=== PATIENT | male | born 1970 | race Hispanic/Latino ===

== ENCOUNTER 2021-11-28 02:32 | Emergency (ER) | payer SELFPAY ==
[2021-11-28 03:42] VITALS: BP 145/94
[2021-11-28] MEDS ORDERED: SULFAMETHOXAZOLE/TRIMETHOPRIM 800/160MG DS TAB PO ONE (04:23)
[2021-11-28] MEDS ORDERED: CLINDAMYCIN 300 MG CAP PO ONE (04:23)
[2021-11-28] MEDS ORDERED: IBUPROFEN 600 MG TAB PO ONE (04:23)
--- NOTE | 2021-11-28 04:28 | Emergency Department Report ---
ED General Adult HPI - General Chief complaint: Skin/Abscess/Foreign Body Stated complaint: INFECTION ON LEFT SIDE OF FACE Time Seen by Provider: 11/28/21 04:12 Source: patient Mode of arrival: Ambulatory Limitations: No Limitations - History of Present Illness Initial comments: Patient is a 51-year-old male with no past medical history presented to the ED with complaint of acute onset persistent painful swollen erythematous maculopapular rash on left cheek with purulent discharge for the last 1 week. Patient states that the pain and the swelling worsened in the last 3 days. Patient denies dizziness, syncope, fever, chills, traumatic injury, chest pain or shortness of breath, sore throat, headache or neck pain, nausea and vomiting. MD Complaint: Left facial erythematous maculopapular rash -: Sudden, week(s) (1) Location: face (left cheek) Severity scale (0 -10): 4 Quality: aching, sharp Consistency: constant Improves with: none Worsens with: none Associated Symptoms: denies other symptoms, rash (Mildly erythematous maculopapular painful rash on left cheek with purulent discharge). denies: confusion, chest pain, diaphoresis, fever/chills, loss of appetite, malaise, nausea/vomiting, shortness of breath, syncope, weakness - Related Data Previous Rx's Medication Instructions Recorded Last Taken Type Clindamycin [Clindamycin CAP] 450 mg PO TID #30 capsule 07/18/13 Unknown Rx HYDROcodone/APAP 5-325 [[place] 1 each PO Q6H PRN #30 tablet 07/18/13 Unknown Rx 5-325 mg TAB] Clindamycin [Clindamycin CAP] 300 mg PO Q8HR #60 capsule 11/28/21 Unknown Rx Ibuprofen [Motrin] 800 mg PO Q8HR PRN #30 tablet 11/28/21 Unknown Rx Sulfamethoxazole/Trimethoprim 1 each PO Q12H #20 tab 11/28/21 Unknown Rx [Bactrim DS TAB] Allergies Allergy/AdvReac Type Severity Reaction Status Date / Time iodine Allergy Swelling Verified 07/13/13 05:10 ED Review of Systems ROS: Stated complaint: INFECTION ON LEFT SIDE OF FACE Other details as noted in HPI Constitutional: denies: chills, fever Eyes: denies: eye pain, eye discharge, vision change ENT: denies: ear pain, throat pain Respiratory: denies: cough, shortness of breath, wheezing Cardiovascular: denies: chest pain, palpitations Endocrine: no symptoms reported Gastrointestinal: denies: abdominal pain, nausea, diarrhea Genitourinary: denies: urgency, dysuria Musculoskeletal: denies: back pain, joint swelling, arthralgia Skin: rash (Erythematous, painful, maculopapular rash on left cheek with purulent discharge), change in color. denies: lesions Neurological: denies: headache, weakness, paresthesias Psychiatric: denies: anxiety, depression Hematological/Lymphatic: denies: easy bleeding, easy bruising ED Past Medical Hx - Past Medical History Previous Medical History?: Yes Hx Congestive Heart Failure: No Hx Diabetes: No Hx Asthma: No Hx COPD: No Additional medical history: Hx of MRSA - Surgical History Past Surgical History?: Yes Additional Surgical History: right hand surgery, Left thumb - Social History Smoking Status: Current Every Day Smoker - Medications Home Medications: Home Medications Medication Instructions Recorded Confirmed Last Taken Type Clindamycin [Clindamycin CAP] 450 mg PO TID #30 capsule 07/18/13 Unknown Rx HYDROcodone/APAP 5-325 [[place] 1 each PO Q6H PRN #30 tablet 07/18/13 Unknown Rx 5-325 mg TAB] Clindamycin [Clindamycin CAP] 300 mg PO Q8HR #60 capsule 11/28/21 Unknown Rx Ibuprofen [Motrin] 800 mg PO Q8HR PRN #30 tablet 11/28/21 Unknown Rx Sulfamethoxazole/Trimethoprim 1 each PO Q12H #20 tab 11/28/21 Unknown Rx [Bactrim DS TAB] ED Physical Exam - General Limitations: No Limitations General appearance: alert, in no apparent distress - Head Head exam: Present: atraumatic, normocephalic, normal inspection - Eye Eye exam: Present: normal appearance, PERRL, EOMI Pupils: Present: normal accommodation - ENT ENT exam: Present: normal orophraynx, mucous membranes moist, TM's normal bilaterally, normal external ear exam, other (Mildly erythematous maculopapular tender rash with purulent discharge on left cheek) - Neck Neck exam: Present: normal inspection, full ROM. Absent: tenderness - Respiratory Respiratory exam: Present: normal lung sounds bilaterally. Absent: respiratory distress, wheezes, rales, chest wall tenderness, accessory muscle use, decreased breath sounds, prolonged expiratory - Cardiovascular Cardiovascular Exam: Present: regular rate, normal rhythm, normal heart sounds. Absent: systolic murmur, diastolic murmur, rubs, gallop - GI/Abdominal GI/Abdominal exam: Present: soft, normal bowel sounds. Absent: tenderness, guarding, hyperactive bowel sounds, hypoactive bowel sounds, organomegaly - Extremities Exam Extremities exam: Present: normal inspection, full ROM, normal capillary refill - Back Exam Back exam: Present: normal inspection, full ROM. Absent: tenderness, CVA tenderness (R), CVA tenderness (L), muscle spasm, paraspinal tenderness, vertebral tenderness - Neurological Exam Neurological exam: Present: alert, oriented X3, CN II-XII intact, normal gait, reflexes normal - Psychiatric Psychiatric exam: Present: normal affect, normal mood - Skin Skin exam: Present: warm, dry, intact, rash (Mild erythematous maculopapular nonfluctuant rash with tenderness on left cheek with purulent discharge), erythema. Absent: normal color ED Course Vital Signs 11/28/21 03:36 Temperature 98.2 F Pulse Rate 82 Respiratory 17 Rate Blood Pressure 145/94 [Right] O2 Sat by Pulse 100 Oximetry ED Medical Decision Making - Medical Decision Making This is a 51-year-old male with no past medical history presented to the ED with complaint of acute onset persistent painful swollen erythematous maculopapular rash on left cheek with purulent discharge for the last 1 week. Patient states that the pain and the swelling worsened in the last 3 days. In the ED, patient is alert and oriented x3 and is not in any distress. Patient was treated in the ED with pain medications and initial oral antibiotics and was discharged home on pain medications and antibiotics and advised to follow-up with his primary care physician in 7 to 10 days for reevaluation. Patient was advised return to the ED immediately if symptoms get worse. - Differential Diagnosis Cellulitis; folliculitis; cutaneous abscess; Critical care attestation.: If time is entered above; I have spent that time in minutes in the direct care of this critically ill patient, excluding procedure time. ED Disposition Clinical Impression: Cutaneous abscess of face, Facial cellulitis, Acute folliculitis Disposition: HOME / SELF CARE / HOMELESS Is pt being admited?: No Does the pt Need Aspirin: No Condition: Stable Instructions: Cellulitis, Adult, [id number], Skin Abscess, [id number], Folliculitis Additional Instructions: Take medication with food, drink plenty of fluids and follow-up with your primary care physician in 7 to 10 days for reevaluation. Return to the ED immediately if symptoms get worse. Prescriptions: Sulfamethoxazole/Trimethoprim [Bactrim DS TAB] 1 each PO Q12H #20 tab Clindamycin [Clindamycin CAP] 300 mg PO Q8HR #60 capsule Ibuprofen [Motrin] 800 mg PO Q8HR PRN #30 tablet PRN Reason: Pain , Severe (7-10) Referrals: [facility] [Provider Group] - 7-10 days Time of Disposition: 04:28 Print Language: GREEK
== END 2021-11-28 05:14 | disposition home or self-care (01) ==
LOC: ED 02:32
DX: L02.01 Cutaneous abscess of face (principal); L73.9 Follicular disorder, unspecified; L03.211 Cellulitis of face; F17.200 Nicotine dependence, unspecified, uncomplicated; Z79.899 Other long term (current) drug therapy; Z88.6 Allergy status to analgesic agent
CPT/HCPCS: 99282